=== PATIENT | male | born 1985 | race Two or more races ===

== ENCOUNTER → 2019-04-25 | Outpatient (CLI) | payer OTHER ==
--- NOTE | 2019-04-26 18:41 | SLEEP ---
DATE OF STUDY: 04/25/2019 OBJECTIVE: The patient is a 33-year-old male with insomnia, nightmares, snoring, fatigue, observed apnea, excessive somnolence, awakening, short of breath. Height 5 feet 9 inches, weight 280 pounds. Body mass index 42. Gerlaw sleep score of 15. INTERPRETATION: Sleep architecture is characterized by sleep efficiency of 90% across the 7.1 hours of recording time. Stage volumes are normal for age. Sleep onset latency is 13 minutes. Respiratory monitoring shows a total of 178 events for an apnea-hypopnea index of 27.8 events per hour of sleep. The minimum oxygen saturation is 65%. CPAP therapy is commenced during the study. He achieved a level of 20 cm with an apnea-hypopnea index in the normal range, 4.4 events per hour of sleep at that setting. Periodic limb movements of sleep occur at the rate of 5 per hour, none per hour associated with arousal. Occasional tachycardia is observed. IMPRESSION: Abnormal polysomnogram showing severe obstructive sleep apnea and hypopnea, treatable on a CPAP setting of 20 cm using a ResMed full face mask, small size. RECOMMENDATIONS: 1. The patient should be started on CPAP setting. 2. He should pursue weight loss and avoid sedatives and alcohol. 3. Consider repeat in-lab study for BiPAP titration or a variable BiPAP machine could be provided if he does not respond to the fixed CPAP setting. Thank you for letting us help with the patient's care. JUANCHO BANUELOS MD DR: ANTONIETTA/alisha JOB#: [id number] / [id number] DR RANDY Robison WHITNEY MD
== END | disposition home or self-care (01) ==
LOC: SLPLAB 19:00
PROVIDERS: ATTEND Internal Medicine Critical Care Medicine
DX: G47.33 Obstructive sleep apnea (adult) (pediatric) (principal); G47.34 Idiopathic sleep related nonobstructive alveolar hypoventilation; I10 Essential (primary) hypertension; I47.1 Supraventricular tachycardia; E11.9 Type 2 diabetes mellitus without complications; F43.10 Post-traumatic stress disorder, unspecified; F41.9 Anxiety disorder, unspecified
CPT/HCPCS: 95810